=== PATIENT | female | born 2000 | race Caucasian/White ===

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

== ENCOUNTER 2022-04-14 20:34 | Emergency (ER) | payer OTHER ==
[~2022-04-14] VITALS: Ht 167.6 cm; Wt 66.7 kg
[~2022-04-14 20:34] MED LIST: HYD2.5O TP
[2022-04-14 20:46] VITALS: BP 114/75
--- NOTE | 2022-04-14 20:50 | NUR ---
to bed ambulatory
[2022-04-14 21:01] VITALS: BP 106/72
--- NOTE | 2022-04-14 21:01 | NUR ---
21 Y/O F PRESENTS WITH SYNCOPE EPISODE TODAY AND TWO LAST WEEK. PT STATED SHE HAS N BUT DENIES VD. PT STATED 5/10 PAIN AND FEELS WEAK. PMH-HEADACHES NKA
--- NOTE | 2022-04-14 21:15 | NUR ---
Patient being evaluated by physician at bedside.
[2022-04-14] MEDS ORDERED: NACL 0.9% 1,000 ML IV ONE (21:25)
--- NOTE | 2022-04-14 21:42 | NUR ---
URINE OBTAINED AND SENT TO LAB. 20G IV CATH PLACE L AC. BLOOD OBTAINED AND COLLECTED BY [employer]OUNTANT SYSTEMS
[2022-04-14 21:45] LABS: BASOPHILS % (AUTO) 0.4 % (0.0-2.0); EOSINOPHILS # (AUTO) 0.1 K/uL (0-0.4); HEMATOCRIT 40.1 % (36-48); HEMOGLOBIN 13.4 g/dL (12.0-16.0); LYMPHOCYTES # (AUTO) 1.1 K/uL (2.5-16.5); LYMPHOCYTES % (AUTO) 10.7 % (20.5-51.1); MEAN CORPUSCULAR HEMOGLOBIN 31 pg (27-31); MEAN CORPUSCULAR HGB CONC 34 g/dL (33-37); MEAN CORPUSCULAR VOLUME 91.6 fL (80-94); MONOCYTES # (AUTO) 0.8 K/uL (0.8-1.0); MONOCYTES % (AUTO) 7.9 % (1.7-9.3); NEUTROPHILS # (AUTO) 8.1 K/uL (1.8-7.7); PLATELET COUNT (AUTO) 248 K/uL (140-450); RED BLOOD CELL COUNT(AUTO) 4.38 MIL/uL (4.20-5.40); RED CELL DISTRIBUTION WIDTH 12.9 % (11.6-13.7); WHITE BLOOD COUNT (AUTO) 10.2 K/uL (4.5-11.0)
[2022-04-14] MEDS ORDERED: ONDA8TAB87 PO (21:51)
--- NOTE | 2022-04-14 23:17 | NUR ---
The patient's care was reviewed and supervised by Daphney Brown RN.
== END 2022-04-14 22:51 | disposition home or self-care (01) ==
LOC: MED 20:34
DX: R55 Syncope and collapse (principal); R11.2 Nausea with vomiting, unspecified; R42 Dizziness and giddiness; F17.200 Nicotine dependence, unspecified, uncomplicated; Z79.899 Other long term (current) drug therapy
CPT/HCPCS: 36415; 81025; 85025; 93005; 96360; 99284; J7030